=== PATIENT | female | born 1965 | race Caucasian/White ===

== ENCOUNTER 2023-06-27 08:05 | Day surgery (SDC) | payer MEDICAID ==
[2023-06-27] MEDS ORDERED: Lactated Ringers 1,000 ML IV SCH (08:30)
[2023-06-27] MEDS ORDERED: Propofol 200 MG/20 ML SDV ONE (09:29)
[2023-06-27] MEDS ORDERED: Midazolam 1 MG/ML 2 ML SDV ONE (09:29)
[2023-06-27] MEDS ORDERED: fentaNYL 50 MCG/ML SDV ONE (09:30)
[2023-06-27 11:47] VITALS: BP 107/68; PULSE 71
== END 2023-06-27 11:54 | disposition home or self-care (01) ==
LOC: JP.SDS 08:05
PROVIDERS: ATTEND Family Medicine
DX: Z12.11 Encounter for screening for malignant neoplasm of colon (principal); F41.9 Anxiety disorder, unspecified; Z88.5 Allergy status to narcotic agent
CPT/HCPCS: J2250; J2704; J3010; J7120